=== PATIENT | male | born 1980 | race Two or more races ===

== ENCOUNTER 2019-01-15 10:04 | Emergency (ER) | payer SELFPAY ==
[~2019-01-15] VITALS: Ht 167.6 cm; Wt 65.8 kg
--- NOTE | 2019-01-15 10:32 | NUR ---
ED Nurse Note: Pt came into the ER w/ complaints of abdominal pain w/ n,v,d x 1 week. Complaining of 10/10 pain. Non radiating. A + O x4. Ambulatory. Skin warm to touch. Pt states that he has an inguinal hernia for over a year but has not gone to any outpatient follow ups.
[2019-01-15 10:33] VITALS: BP 133/80
--- NOTE | 2019-01-15 10:37 | NUR ---
ED Nurse Note: Pt has a reducable hernia and is scheduled to have surgery in 1 month.
[2019-01-15] MEDS ORDERED: Ketorolac 30mg Inj IM ONE (10:45)
[2019-01-15] MEDS ORDERED: ACETAMINOPHEN-1 EAC1 ORAL (10:58)
[2019-01-15] MEDS ORDERED: IBUPROFEN600 MG ORAL (10:58)
[2019-01-15 11:05] VITALS: BP 132/84
--- NOTE | 2019-01-15 11:05 | NUR ---
ER DISCHARGE NOTE: Patient is cleared to be discharged per ERMD, pt is aox4, on room air, with stable vital signs. pt was given dc and prescription instructions, pt was able to verbalize understanding, pt id band removed without complications. pt is able to ambulate with steady gait. pt took all belongings.
--- NOTE | 2019-01-15 13:50 | Emergency Room Report ---
History of Present Illness General Chief Complaint: Abdominal Pain Source: Patient Present Illness HPI 38-year-old male presents ED for evaluation. Patient complaining of abdominal pain. States he's had a hernia for several months now. States that he has to push it in quite often. Which causes him pain. Pain is sharp, 8 out of 10, nonradiating. Denies nausea or vomiting. States he was scheduled for surgery next month but states he still having pain today. Denies fevers or chills. No other aggravating relieving factors. Denies any other associated symptoms Allergies: Coded Allergies: No Known Allergies (Unverified , 01/15/19) Patient History Past Medical History: none Past Surgical History: none Pertinent Family History: none Social History: Denies: smoking, alcohol use, drug use Immunizations: UTD Reviewed Nursing Documentation: PMH: Agreed; PSxH: Agreed Nursing Documentation-PMH Past Medical History: No History, Except For Review of Systems All Other Systems: negative except mentioned in HPI Physical Exam Vital Signs Date Time Temp Pulse Resp B/P (MAP) Pulse Ox O2 Delivery O2 Flow Rate FiO2 01/15/19 10:17 97.7 98 20 103/62 100 Room Air 01/15/19 10:33 100 Sp02 EP Interpretation: reviewed, normal General Appearance: no apparent distress, alert, GCS 15, non-toxic Head: normocephalic, atraumatic Eyes: bilateral eye normal inspection, bilateral eye PERRL ENT: hearing grossly normal, normal pharynx, no angioedema, normal voice Neck: full range of motion, supple/symm/no masses Respiratory: chest non-tender, lungs clear, normal breath sounds, speaking full sentences Cardiovascular #1: regular rate, rhythm, no edema Cardiovascular #2: 2+ carotid (R), 2+ carotid (L), 2+ radial (R), 2+ radial (L) , 2+ dorsalis pedis (R), 2+ dorsalis pedis (L) Gastrointestinal: normal bowel sounds, non tender, soft, non-distended, no guarding, no rebound Rectal: deferred Genitourinary: normal inspection, no CVA tenderness Musculoskeletal: back normal, gait/station normal, normal range of motion, non- tender Neurologic: alert, oriented x3, responsive, motor strength/tone normal, sensory intact, speech normal Psychiatric: judgement/insight normal, memory normal, mood/affect normal, no suicidal/homicidal ideation Reflexes: 3+ bicep (R), 3+ bicep (L), 3+ tricep (R), 3+ tricep (L), 3+ knee (R) , 3+ knee (L) Skin: normal color, no rash, warm/dry, well hydrated Lymphatic: no adenopathy Medical Decision Making Diagnostic Impression: Primary Impression: Hernia ER Course Hospital Course 38-year-old M presents to ED with abdominal pain Differential diagnosis includes-appendicitis, cholecystitis, small bowel obstruction, gastritis, Clinical course Patient placed on stretcher. After initial history, physical exam reveals male in no acute distress. On exam patient notes pain to left inguinal area. There is no evidence of a hernia at this time. Abdomen is soft. No signs of obstruction or incarceration. Discussed findings with the patient. I do not believe imaging or workup required at this time. Patient will follow-up with his outpatient surgeon next month. I'll prescribe him short course of pain meds. Safe for discharge close outpatient follow-up I feel this is a highly complex case requiring extensive working including EKG/ Rhythm strip, Xray/CT/US, Blood/urine lab work, repeat exams while in ED, and administration of strong opiates/narcotics for pain control, admission to hospital or close patient follow up. Diagnosis - hernia Stable and discharged to home with Rx tylenol #3. Followup with PMD/surgery. Return to ED if symptoms recur or worsen Last Vital Signs Date Time Temp Pulse Resp B/P (MAP) Pulse Ox O2 Delivery O2 Flow Rate FiO2 01/15/19 11:05 97.5 87 18 132/84 100 Room Air 100 Status: improved Disposition: HOME, SELF-CARE Condition: Stable Scripts Ibuprofen* (MOTRIN*) 600 Mg Tablet 600 MG ORAL Q8H PRN for For Pain, #30 TAB 0 Refills Prov: Baldomero Adams MD 01/15/19 Acetaminophen With Codeine (T#3) (TYLENOL #3 TAB*) Y Tab 1 TAB ORAL Q8H PRN for For Pain, #12 TAB Prov: Baldomero Adams MD 01/15/19 Referrals: NOT CHOSEN IPA/,REFERRING (PCP) [facility] Patient Instructions: Inguinal Hernia, Adult, [id number] Baldomero Adams MD Jan 15, 2019 13:50
== END 2019-01-15 11:06 | disposition home or self-care (01) ==
LOC: EMR 10:42
DX: K40.90 Unilateral inguinal hernia, without obstruction or gangrene, not specified as recurrent (principal)
CPT/HCPCS: 96372; 99283; J1885